=== PATIENT | female | born 1990 | race Caucasian/White ===

== ENCOUNTER 2017-08-01 04:41 | Emergency (ER) | payer OTHER ==
[2017-08-01] MEDS: SODIUM CHLOR 0.9% 1000 ML INJ 1,000 ML IV (05:15)
[2017-08-01 06:05] LABS: AUTOMATED NEUTROPHIL # 4.8 TH/MM3 (1.8-7.7); BASOPHIL % 0.6 % (0.0-2.0); EOSINOPHIL % 0.7 % (0.0-4.0); HEMATOCRIT 43.1 % (35.0-46.0); HEMO FLAGS DIFF FINAL; HEMOGLOBIN 14.1 GM/DL (11.6-15.3); LYMPH % 20.9 % (9.0-44.0); LYMPHOCYTE # 1.3 TH/MM3 (1.0-4.8); MEAN CELL VOLUME 84.3 FL (80.0-100.0); MEAN CORPUSCULAR HEMOGLOBIN 27.6 PG (27.0-34.0); MEAN CORPUSCULAR HGB CONC 32.7 % (32.0-36.0); MEAN PLATELET VOLUME 8.6 FL (7.0-11.0); MONO % 6.1 % (0.0-8.0); MONOCYTE # 0.4 TH/MM3 (0-0.9); NEUT % 71.7 % (16.0-70.0); PLATELET COUNT 274 TH/MM3 (150-450); RED BLOOD COUNT 5.12 MIL/MM3 (4.00-5.30); RED CELL DISTRIBUTION WIDTH 12.5 % (11.6-17.2); WHITE BLOOD COUNT 6.4 TH/MM3 (4.0-11.0)
[2017-08-01 06:10] LABS: BARBITURATES, URINE NEG (NEG); BENZODIAZEPINE,URINE NEG (NEG); CANNABINOIDS, URINE NEG (NEG); COCAINE, URINE NEG (NEG)
[2017-08-01 06:11] LABS: AMPHETAMINE, URINE NEG (NEG); CHLORIDE 111 MEQ/L (98-107); POTASSIUM 3.8 MEQ/L (3.5-5.1); SODIUM (NA) 142 MEQ/L (136-145)
[2017-08-01 06:14] LABS: CALCIUM 8.5 MG/DL (8.5-10.1)
[2017-08-01 06:15] LABS: ALBUMIN 3.9 GM/DL (3.4-5.0); ANION GAP 7 MEQ/L (5-15); BICARBONATE 23.7 MEQ/L (21.0-32.0); BLOOD UREA NITROGEN 8 MG/DL (7-18); GLUCOSE,RANDOM 95 MG/DL (74-106)
[2017-08-01 06:17] LABS: ALT (GPT) 19 U/L (10-53)
[2017-08-01 06:18] LABS: AST (GOT) 17 U/L (15-37); CREATININE 0.44 MG/DL (0.50-1.00); GLOMERULAR FILTRATION RATE 176 ML/MIN (>89)
[2017-08-01 06:19] LABS: TOTAL BILIRUBIN ADULT 0.2 MG/DL (0.2-1.0); TOTAL PROTEIN 7.3 GM/DL (6.4-8.2)
[2017-08-01 06:20] LABS: ALCOHOL 101 MG/DL (0-5)
[2017-08-01 06:21] LABS: ALKALINE PHOSPHATASE 97 U/L (45-117)
[2017-08-01 08:07] LABS: ACETAMINOPHEN LESS THAN 2.0 MCG/ML (10.0-30.0)
[2017-08-01 08:26] LABS: SALICYLATES LESS THAN 1.7 MG/DL (2.8-20.0)
== END 2017-08-01 06:57 | disposition home or self-care (01) ==
LOC: PHED 04:41
DX: F10.99 Alcohol use, unspecified with unspecified alcohol-induced disorder (principal); F41.9 Anxiety disorder, unspecified; Y90.5 Blood alcohol level of 100-119 mg/100 ml
CPT/HCPCS: 80053; 80307; 84703; 85025; 96360; 96361; 99284-25